=== PATIENT | female | born 1960 | race Caucasian/White ===

== ENCOUNTER 2020-05-09 13:48 | Outpatient (REF) | payer OTHER, SELFPAY ==
[2020-05-12 15:36] LABS: HPV mRNA E6/E7 rflx Not Detected (Not Detected)
== END 2020-05-09 13:49 | disposition home or self-care (01) ==
LOC: HO.LAB 13:48
PROVIDERS: Visit Provider Advanced Practice Midwife
DX: Z01.419 Encounter for gynecological examination (general) (routine) without abnormal findings (principal); Z78.0 Asymptomatic menopausal state; D47.3 Essential (hemorrhagic) thrombocythemia
CPT/HCPCS: 87624; 87625; 88142

== ENCOUNTER 2020-07-12 15:41 | Outpatient (REF) | payer OTHER, SELFPAY | END 2020-07-12 15:42 | disposition home or self-care (01) | LOC: HO.LAB 15:41 | PROVIDERS: Visit Provider Nurse Practitioner Family | DX: J32.9 Chronic sinusitis, unspecified (principal); Z20.822 Contact with and (suspected) exposure to COVID-19 | CPT/HCPCS: 36415; U0003 ==

== ENCOUNTER 2020-10-07 09:00 | Outpatient (REF) | payer OTHER, SELFPAY ==
--- NOTE | ~2020-10-07 | MM_ITS ---
EXAMINATION: MM SCREENING DIGITAL BREAST TOMOSYNTHESIS, BILATERAL CLINICAL INFORMATION: Screening. Asymptomatic. The lifetime risk of breast cancer based on the Tyrer-Cuzick Model is 9%. COMPARISON: Mammography: 01/09/2019, 11/19/2017 TECHNIQUE: Digital breast tomosynthesis is performed in both the craniocaudal and mediolateral oblique views along with computer-aided detection (CAD). Synthesized 2D images are generated from the tomosynthesis. FINDINGS: There are scattered areas of fibroglandular density (ACR BI-RADS breast composition Category b). There are no significant masses, abnormal calcifications, or other abnormalities. Parenchymal pattern is similar to prior exams. The axilla and skin contours are unremarkable. MM/MM tomosynthesis screening BI IMPRESSION: No mammographic evidence of malignancy. ASSESSMENT: BI-RADS 1: Negative RECOMMENDATION: Routine annual mammography screening. This patient's information was entered into a reminder system with a target due date for their next mammogram.
== END 2020-10-07 09:01 | disposition home or self-care (01) ==
LOC: HO.MAMMO 09:00
PROVIDERS: PCP Nurse Practitioner Family; Visit Provider Nurse Practitioner Family
DX: Z12.31 Encounter for screening mammogram for malignant neoplasm of breast (principal)
CPT/HCPCS: 77063; 77067

== ENCOUNTER → 2024-02-27 14:35 | Outpatient (RCR) | payer OTHER, SELFPAY ==
--- NOTE | 2020-05-09 13:59 | PM.HEMONCPN ---
Medical Summary - Medical Summary Chief complaint: follow-up for essential thrombocytosis. Medical Summary: DIAGNOSES: 1. Essential Thrombocytosis. 2. Previous history of iron deficiency anemia while she still had her period. CURRENT THERAPY: Hydrea 500 mg twice a day. Off the baby aspirin. Interval History Interval history: This is a pleasant 59-year-old lady, here for a follow-up visit. She is doing very well. She has no complaints today. She has a history of lipodermatosclerosis, of the skin of the legs. 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 They have prescribed steroid cream which is helping. She denies any changes in her medical history nor medications. She has good energy level. Overall she feels well. She denies any fever nor chills. No headache no dizziness. No chest nor trouble breathing. She denies abdominal pain nausea vomiting heartburn indigestion. Bowels are working without any gross blood in it. She enjoys a good appetite. She has lost some weight however she has been eating a healthy diet with more fruit. She still likes her sweets. She is still going into work however they are observing social distancing. She is in good spirits. Rest of the review of systems is unremarkable. Review of Systems - Constitutional Denies anorexia, Denies fatigue, Denies fever(s), Denies lack of energy - Eyes Denies blurry vision - ENT Reports system reviewed and no additional complaints, except as documented - Cardiovascular Denies chest pain at rest - Respiratory Denies chest congestion - Gastrointestinal Denies abdominal pain, Denies belching, Denies change in bowel habits - Musculoskeletal Denies back pain - Neurologic Reports system reviewed and no additional complaints, except as documented - Psychiatric Reports anxiety - Endocrine Denies excessive sweating - Hematologic/Lymphatic Denies easy bruising PMFSH Medical History: Medical History (Last Reviewed 05/09/20 @ 13:48 by Anjelica Kelly CNM) Hx of iron deficiency anemia Hx of thrombocytosis Functional capacity: independent ambulation Patient : No Family History: Family History (Last Reviewed 05/09/20 @ 13:48 by Anjelica Kelly CNM) Father Emphysema/COPD CVD (cardiovascular disease) Mother Emphysema/COPD Diverticulitis Surgical History: Surgical History (Last Reviewed 05/09/20 @ 13:48 by Anjelica Kelly CNM) History of endometrial ablation Hx of dilation and curettage Home Medications and Allergies Home Medications Medication Instructions Recorded Confirmed Type hydroxyurea 500 mg capsule 500 mg PO BID 05/09/20 History melatonin 5 mg tablet 5 mg PO BEDTIME PRN 05/09/20 History omeprazole 20 mg capsule,delayed 20 mg PO DAILY 05/09/20 History release Allergies Allergy/AdvReac Type Severity Reaction Status Date / Time No Known Allergies Allergy Unverified 03/10/20 17:00 Exam - Constitutional Present: no acute distress - Routine HEENT Exam Head: Present: normal inspection ENT: Present: mucous membranes moist - Routine Neck Exam Present: full ROM - Routine Cardiovascular Exam Cardiovascular: Present: RRR, S1, S2 - Routine Abdominal Exam Present: soft, nontender - Routine Rectal Exam Patient deferred: digital exam - Routine Extremities Exam Present: nontender Comments: she has a rash on her legs related to Lipodermatosclerosis. - Routine Skin Exam Present: intact - Routine Neurological Exam Present: alert, oriented X3 - Detailed Neurological Exam: Coma Scale Eye Opening: Spontaneous (4) Verbal Response: Oriented (5) Motor Response: Obeys commands (6) Glascow Coma Scale Total: 15 Data - Labs CBC & Chem 7: 05/09/20 14:10 05/09/20 14:10 Progress Note: A/P (1) Essential thrombocytosis Status: Acute Assessment and plan: A 59 year-old lady with history of Essential Thrombocytosis. She has been maintained on Hydrea 500 mg twice a day. With that, her platelet count is under reasonable control. It is actually a bit elevated today, at 500. PLAN: She will continue on the Hydrea 500 mg b.i.d. I havel refilled it. I did advise her again, to take the baby aspirin once a day. She will return in 3 months for labs and in 6 for a followup visit. She will call for any questions or problems prior to that time. I offered to do JAK2 mutation, but she says her insurance covers 80%, but she still is responsible for the 20%, so she does not want to do it at the present time. She tells me she is moving to [place] in spring. Her daughter is in the and lives there. They are planning to have a baby soon. She is excited. Thank you, CC: Liam Stewart. Shi Gardner. Code Status FULL CODE - Time Spent With Patient Total time spent is greater than 50% in coordination of care (as documented) at patient's floor/unit and/or counseling patient: 25 - 35 minutes
[2020-05-09 14:21] VITALS: BMI 31.4
[2020-05-09 14:22] VITALS: BP 142/64; PULSE 79; RESP 18; TEMP 36.6; O2SAT 96
[2020-05-09 14:32] LABS: MANUAL DIFF FLAG NO
[2020-05-09 14:34] LABS: Basophils Percent Auto 0.6 % (0-2); Eosinophils Absolute Auto 0.1 X10*3/uL (0.0-0.4); Eosinophils Percent Auto 1.8 % (0-4); Hematocrit 38.9 % (37-47); Hemoglobin 13.1 g/dl (12.0-16.0); Imm Gran Abs Auto 0.03 X10*3/uL (0.00-0.03); Imm Gran Pct Auto 0.6 % (0.0-0.4); Lymphocytes Absolute Auto 1.7 X10*3/uL (1.2-4.9); Lymphocytes Percent Auto 32.9 % (20-40); Mean Corpuscular HGB Conc 33.7 g/dl (31.0-35.0); Mean Corpuscular Hemoglobin 33.1 pg (27.0-33.0); Mean Corpuscular Volume 98.2 fL (80-98); Monocytes Absolute Auto 0.5 X10*3/uL (0.1-1.2); Monocytes Percent Auto 9.1 % (2-11); Neutrophils Absolute Auto 2.8 X10*3/uL (2.0-8.3); Platelet Count 494 X10*3/uL (160-400); Red Blood Count 3.96 X10*6/uL (4.20-5.50); Red Cell Distribution Width 12.6 % (11.0-16.0); White Blood Count 5.1 X10*3/uL (4.8-10.8)
[2020-05-09 14:56] LABS: Alanine Aminotransferase 15 U/L (0-31); Albumin Level 4.1 g/dL (3.5-5.0); Alkaline Phosphatase 67 U/L (39-117); Anion Gap 11 (12-20); Aspartate Amino Transferase 14 U/L (5-31); Bilirubin Total 0.2 mg/dL (0.0-1.0); Blood Urea Nitrogen 12 mg/dL (9-16); Calcium 8.6 mg/dL (8.4-10.2); Carbon Dioxide 28 mmol/L (22-29); Chloride 105 mmol/L (96-108); Estimated Glomerular Filt Rate > 60; Glucose Random 98 mg/dL (60-115); Potassium 4.5 mmol/l (3.3-5.1); Sodium 139 mmol/L (135-145); Total Protein 7.4 g/dL (6.5-8.0)
[2020-10-07 10:33] VITALS: BP 128/73; PULSE 78; RESP 12; TEMP 36.7; O2SAT 98; BMI 32.8
[2020-10-07 11:09] LABS: MANUAL DIFF FLAG NO
--- NOTE | 2020-10-07 11:10 | PM.HEMONCPN ---
Medical Summary - Medical Summary Date of Service: 10/07/20 Chief complaint: Follow-up for: Essential thrombocytosis. Medical Summary: DIAGNOSES: 1. Essential Thrombocytosis. 2. Previous history of iron deficiency anemia while she still had her period. CURRENT THERAPY: Hydrea 500 mg twice a day. Off the baby aspirin. Interval History Interval history: This is a pleasant 59-year-old lady, here for a follow-up visit. She is doing very well. She has had some UTI symptoms. She feels a little tired. She has urinary urgency nausea and low back pain. Some dysuria. Other than that, she denies any changes in her medical history nor medications. She has good energy level. Overall she feels well. She denies any fever nor chills. No headache no dizziness. No chest nor trouble breathing. She denies abdominal pain nausea vomiting heartburn indigestion. Bowels are working without any gross blood in it. She enjoys a good appetite. She has lost some weight however she has been eating a healthy diet with more fruit. She still likes her sweets. 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 She is actually going to be moving to [place] in December, to be with her daughter. She is in good spirits. Rest of the review of systems is unremarkable. She has a history of lipodermatosclerosis, of the skin of the legs. 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 They have prescribed steroid cream which is helping. Review of Systems - Constitutional Reports no additional constitutional complaints, Reports lack of energy, Reports malaise, Reports weight loss - Eyes Reports no additional eye complaints - ENT Reports no additional ear, nose, mouth, and throat complaints - Cardiovascular Reports no additional cardiovascular complaints - Respiratory Reports no additional respiratory complaints - Gastrointestinal Reports no additional gastrointestinal complaints - Genitourinary Reports no additional female genitourinary complaints, Reports painful urination, Reports urinary urgency - Musculoskeletal Reports no additional musculoskeletal complaints - Integumentary/Breasts Skin/Breast: Reports no additional skin complaints - Neurologic Reports no additional neurologic complaints - Psychiatric Reports no additional psychiatric complaints - Endocrine Reports no additional endocrine complaints - Hematologic/Lymphatic Reports no additional hematologic/lymphatic complaints - Allergic/Immunologic Reports no additional allergic/immunologic complaints [facility] Medical History: Medical History (Last Reviewed 05/09/20 @ 13:48 by Anjelica Kelly CNM) Hx of iron deficiency anemia Hx of thrombocytosis Functional capacity: independent ambulation Patient : No Family History: Family History (Last Reviewed 05/09/20 @ 13:48 by Anjelica Kelly CNM) Father Emphysema/COPD CVD (cardiovascular disease) Mother Emphysema/COPD Diverticulitis Surgical History: Surgical History (Last Reviewed 05/09/20 @ 13:48 by Anjelica Kelly CNM) History of endometrial ablation Hx of dilation and curettage Social History: Social History (Last Updated 10/07/20 @ 10:37 by Sintia Shipman) Alcohol History: Alcohol intake: former Alcohol History Details: Alcohol intake frequency: does not drink Tobacco History: Smoking Status: Former smoker Packs Per Day: 0.5 Smoking Quit Date: 2015 Substance Use History: Use of substances other than those prescribed or required for medical reasons: No Nutrition Assessment: Patient : No Smoking status: Former smoker Oncology Screenings - ECOG Performance Status ECOG Performance Status: 0 Home Medications and Allergies Home Medications Medication Instructions Recorded Confirmed Type melatonin 5 mg tablet 5 mg PO BEDTIME PRN 05/09/20 10/07/20 History Allergies Allergy/AdvReac Type Severity Reaction Status Date / Time No Known Allergies Allergy Unverified 03/10/20 17:00 Exam Vital signs: Vital Signs Temp 98.0 F 10/07/20 10:33 Pulse 78 10/07/20 10:33 Resp 12 10/07/20 10:33 BP 128/73 10/07/20 10:33 Pulse Ox 98 10/07/20 10:33 Intake & Output 10/06/20 10/07/20 10/07/20 18:59 06:59 18:59 Other: Weight 86.8 kg [place] Weight in Grams [id number] Weight 86.8 kg Body Mass Index 32.8 - Constitutional Present: no acute distress - Routine HEENT Exam Head: Present: normal inspection Eye: Present: normal appearance ENT: Present: mucous membranes moist - Routine Neck Exam Present: full ROM - Routine Respiratory Exam Present: CTAB - Routine Cardiovascular Exam Cardiovascular: Present: RRR, S1, S2 - Routine Abdominal Exam Present: soft, nontender - Routine Rectal Exam Patient deferred: digital exam - Routine Extremities Exam Present: nontender - Routine Back/Spine/Pelvis Exam Back/Spine: Present: full ROM - Routine Skin Exam Present: intact - Routine Neurological Exam Present: alert, oriented X3 - Detailed Neurological Exam: Coma Scale Eye Opening: Spontaneous (4) - Routine Psychiatric Exam Present: normal affect Data - Labs CBC & Chem 7: 10/07/20 11:02 10/07/20 11:02 Labs: 05/09/20 14:10 CMP [Comprehensive Met. Panel] Routine Complete Blood Count Auto Diff Routine Laboratory Last Values WBC 5.1 X10*3/uL (4.8-10.8) 05/09/20 14:10 RBC 3.96 X10*6/uL (4.20-5.50) L 05/09/20 14:10 Hgb 13.1 g/dl (12.0-16.0) 05/09/20 14:10 Hct 38.9 % (37-47) 05/09/20 14:10 MCV 98.2 fL (80-98) H 05/09/20 14:10 MCH 33.1 pg (27.0-33.0) H 05/09/20 14:10 MCHC 33.7 g/dl (31.0-35.0) 05/09/20 14:10 RDW 12.6 % (11.0-16.0) 05/09/20 14:10 Plt Count 494 X10*3/uL (160-400) H 05/09/20 14:10 MPV 10.0 fL (9.4-12.3) 05/09/20 14:10 Immature Gran % (Auto) 0.6 % (0.0-0.4) H 05/09/20 14:10 Neut % (Auto) 55.0 % (45-73) 05/09/20 14:10 Lymph % (Auto) 32.9 % (20-40) 05/09/20 14:10 Towner % (Auto) 9.1 % (2-11) 05/09/20 14:10 Eos % (Auto) 1.8 % (0-4) 05/09/20 14:10 Baso % (Auto) 0.6 % (0-2) 05/09/20 14:10 Lymph # (Auto) 1.7 X10*3/uL (1.2-4.9) 05/09/20 14:10 Towner # (Auto) 0.5 X10*3/uL (0.1-1.2) 05/09/20 14:10 Eos # (Auto) 0.1 X10*3/uL (0.0-0.4) 05/09/20 14:10 Baso # (Auto) 0.0 X10*3/uL (0.0-0.2) 05/09/20 14:10 Abs Immat Gran (auto) 0.03 X10*3/uL (0.00-0.03) 05/09/20 14:10 Absolute Neuts (auto) 2.8 X10*3/uL (2.0-8.3) 05/09/20 14:10 Absolute Nucleated RBC 0.000 X10*3/uL (0.0-0.012) 05/09/20 14:10 Nucleated RBC % (auto) 0.0 /100WBC (0.0-0.2) 05/09/20 14:10 Sodium 139 mmol/L (135-145) 05/09/20 14:10 Potassium 4.5 mmol/l (3.3-5.1) 05/09/20 14:10 Chloride 105 mmol/L (96-108) 05/09/20 14:10 Carbon Dioxide 28 mmol/L (22-29) 05/09/20 14:10 Anion Gap 11 (12-20) L 05/09/20 14:10 BUN 12 mg/dL (9-16) 05/09/20 14:10 Creatinine 0.80 mg/dL (0.5-1.4) 05/09/20 14:10 Estim Creat Clear Calc 80.0 05/09/20 14:10 Estimated GFR > 60 05/09/20 14:10 Random Glucose 98 mg/dL (60-115) 05/09/20 14:10 Calcium 8.6 mg/dL (8.4-10.2) 05/09/20 14:10 Total Bilirubin 0.2 mg/dL (0.0-1.0) 05/09/20 14:10 AST 14 U/L (5-31) 05/09/20 14:10 ALT 15 U/L (0-31) 05/09/20 14:10 Alkaline Phosphatase 67 U/L (39-117) 05/09/20 14:10 Total Protein 7.4 g/dL (6.5-8.0) 05/09/20 14:10 Albumin 4.1 g/dL (3.5-5.0) 05/09/20 14:10 Progress Note: A/P (1) Essential thrombocytosis Status: Acute Assessment and plan: A 59 year-old lady with history of Essential Thrombocytosis. She has been maintained on Hydrea 500 mg twice a day. With that, her platelet count is under reasonable control. It is actually a bit elevated today, at 487. It is lower than before. She had symptoms of a UTI. PLAN: I will check urine clean-catch. This is positive: 2+ leukocyte Estrase, nitrite positive, 50-75% WBC, bacteria positive. I have sent a prescription for Macrobid, in case it is positive. She will continue on the Hydrea 500 mg b.i.d. I have refilled it. I did advise her again, to take the baby aspirin once a day. She will return in 3 months for labs, before moving to [place]. She will call for any questions or problems prior to that time. I offered to do JAK2 mutation, but she says her insurance covers 80%, but she still is responsible for the 20%, so she does not want to do it at the present time. She tells me she is moving to [place] in spring. Her daughter is in the and lives there. They are planning to have a baby soon. She is excited. Thank you, CC: Liam Stewart. Shi Gardner. - Time Spent With Patient Total time spent is greater than 50% in coordination of care (as documented) at patient's floor/unit and/or counseling patient: 25 - 35 minutes
[2020-10-07 11:13] LABS: Basophils Percent Auto 0.5 % (0-2); Eosinophils Absolute Auto 0.1 X10*3/uL (0.0-0.4); Eosinophils Percent Auto 0.8 % (0-4); Hematocrit 40.2 % (37-47); Hemoglobin 13.1 g/dl (12.0-16.0); Imm Gran Abs Auto 0.04 X10*3/uL (0.00-0.03); Imm Gran Pct Auto 0.6 % (0.0-0.4); Lymphocytes Absolute Auto 1.5 X10*3/uL (1.2-4.9); Lymphocytes Percent Auto 23.7 % (20-40); Mean Corpuscular HGB Conc 32.6 g/dl (31.0-35.0); Mean Corpuscular Hemoglobin 32.5 pg (27.0-33.0); Mean Corpuscular Volume 99.8 fL (80-98); Mean Platelet Volume 9.4 fL (9.4-12.3); Monocytes Absolute Auto 0.4 X10*3/uL (0.1-1.2); Monocytes Percent Auto 6.9 % (2-11); Neutrophils Absolute Auto 4.2 X10*3/uL (2.0-8.3); Neutrophils Percent Auto 67.5 % (45-73); Platelet Count 487 X10*3/uL (160-400); Red Blood Count 4.03 X10*6/uL (4.20-5.50); Red Cell Distribution Width 12.8 % (11.0-16.0); White Blood Count 6.2 X10*3/uL (4.8-10.8)
[2020-10-07 11:17] LABS: Glucose Urine UA NEG (NEG); Leukocyte Esterase Urine 2+ (NEG); Nitrite Urine POS (NEG); UACC Culture Trigger YES; Urine Blood NEG (NEG); Urine Ketones NEG (NEG); Urine Protein NEG (NEG-TRACE)
[2020-10-07 11:19] LABS: Appearance Urine CLOUDY; Color Urine YELLOW
[2020-10-07 11:28] LABS: Bacteria Urine 4+ /LPF; RBC Urine 0-2 /HPF (0); Squamous Epithelial Cell Urine 1+ /LPF; WBC Urine 50-75 /HPF (0-4)
[2020-10-07 11:44] LABS: Alanine Aminotransferase 13 U/L (0-31); Albumin Level 4.1 g/dL (3.5-5.0); Alkaline Phosphatase 71 U/L (39-117); Anion Gap 11 (12-20); Aspartate Amino Transferase 13 U/L (5-31); Bilirubin Total < 0.2 mg/dL (0.0-1.0); Blood Urea Nitrogen 10 mg/dL (9-16); Calcium 9.2 mg/dL (8.4-10.2); Carbon Dioxide 30 mmol/L (22-29); Chloride 106 mmol/L (96-108); Creatinine Clr Calc Pharmacy 92.1; Estimated Glomerular Filt Rate > 60; Glucose Random 69 mg/dL (60-115); Potassium 4.2 mmol/L (3.3-5.1); Sodium 143 mmol/L (135-145); Total Protein 7.5 g/dL (6.5-8.0)
--- NOTE | 2020-10-07 14:03 | MHC.HEMONCMA ---
Patient came in for a follow up today, states she is feeling ok but has a UTI. Patient gave urine and i had it sent to the lab. Clinical summary was reviewed and updated. Patient had labs and will return in 6 months .
[2020-12-23 10:20] LABS: Basophils Percent Auto 0.5 % (0-2); Eosinophils Absolute Auto 0.1 X10*3/uL (0.0-0.4); Eosinophils Percent Auto 1.6 % (0-4); Hematocrit 40.3 % (37-47); Hemoglobin 13.2 g/dl (12.0-16.0); Imm Gran Abs Auto 0.02 X10*3/uL (0.00-0.03); Imm Gran Pct Auto 0.5 % (0.0-0.4); Lymphocytes Absolute Auto 1.6 X10*3/uL (1.2-4.9); Lymphocytes Percent Auto 35.8 % (20-40); MANUAL DIFF FLAG NO; Mean Corpuscular HGB Conc 32.8 g/dl (31.0-35.0); Mean Corpuscular Hemoglobin 32.8 pg (27.0-33.0); Mean Platelet Volume 9.3 fL (9.4-12.3); Monocytes Absolute Auto 0.3 X10*3/uL (0.1-1.2); Monocytes Percent Auto 7.4 % (2-11); Neutrophils Absolute Auto 2.4 X10*3/uL (2.0-8.3); Neutrophils Percent Auto 54.2 % (45-73); Platelet Count 418 X10*3/uL (160-400); Red Blood Count 4.03 X10*6/uL (4.20-5.50); White Blood Count 4.4 X10*3/uL (4.8-10.8)
[2020-12-23 11:04] LABS: Alanine Aminotransferase 20 U/L (0-31); Alkaline Phosphatase 67 U/L (39-117); Anion Gap 12 (12-20); Aspartate Amino Transferase 17 U/L (5-31); Bilirubin Total 0.4 mg/dL (0.0-1.0); Blood Urea Nitrogen 7 mg/dL (9-16); Calcium 9.1 mg/dL (8.4-10.2); Carbon Dioxide 25 mmol/L (22-29); Chloride 109 mmol/L (96-108); Creatinine Clr Calc Pharmacy 88.4; Estimated Glomerular Filt Rate > 60; Glucose Random 98 mg/dL (60-115); Potassium 4.5 mmol/L (3.3-5.1); Sodium 141 mmol/L (135-145); Total Protein 7.2 g/dL (6.5-8.0)
--- NOTE | 2020-12-23 11:16 | MHC.HEMONC ---
pt in for labs prior to move to [place]. They were WNL. Lab report given to Dr Buenrostro.
--- NOTE | 2021-02-28 14:17 | MHC.HEMONC ---
PT. CALL REGARDING HYDREA Rx - MOVED TO [place]([address] [place] [address]) [facility] -[phone]. WILI ÁLVAREZ WILL CHECK WITH PIO SHAIKH ON PHARMACY IN THE SYSTEM
--- NOTE | 2021-03-02 14:32 | MHC.HEMONC ---
PT CALLED FOR HYDREA REFILL. MAIL ORDER PHARMACY CHANGED TO [facility] IN [facility]. DR. COOL NOTIFIED.
--- NOTE | 2021-10-19 12:57 | MHC.HEMONCSW ---
PATIENT MOVED TO [place] IN DECEMBER 2020.
--- NOTE | 2023-07-31 16:16 | HE.ONCSEC ---
Veda Called to request las office visit notes which was from , she requested the last two lab report and the MM screening that the PT had in 2020. Faxed to [phone]
== END | disposition home or self-care (01) ==
LOC: HO.ONC 05-09 13:51
PROVIDERS: PCP Nurse Practitioner Family; Visit Provider Internal Medicine Medical Oncology
DX: D47.3 Essential (hemorrhagic) thrombocythemia (principal)
CPT/HCPCS: 36415; 80053; 81001; 81003; 85025; 87086; 87088; 87186; 99214